=== PATIENT | female | born 1980 ===

== ENCOUNTER 2016-05-06 17:47 | Inpatient (IN) | payer BC ==
[~2016-05-06] VITALS: Ht 177.8 cm; Wt 73.0 kg
[2016-05-06] MEDS ORDERED: LACTATED RINGER'S 1000ML 1,000 ML IV SCH ×2 (18:04→19:00)
[2016-05-06] MEDS ORDERED: CITRIC ACID/SODIUM CITRATE 15 ML UDC PO ONE (18:15)
--- NOTE | 2016-05-06 18:17 | History and Physical ---
History & Physical Date & Time of Service: May 06, 2016 at 18:12 Chief Complaint: LABOR Primary Care Physician: No Doctor, Assigned History of Present Illness Source: patient Patient is a 35 yo at 38.3 wks who is presented with her rn access and Service Manager to us after trila of home delivery. She has been pushing for 7 hours and no progress and persistent face presentation She SROM'ed on 05/04 at 11 pm Her cx was closed yesterday am by her rn access. Started to have ctxs last night on 05/05 she was then found to be fully dilated at 6 am this morning She has been pushing on and off for 7 hours since 10 am and had no progress Her rn access thought, baby was presenting with nose/ face. She tried to manually flex the baby's head but could not. She called me and instructed to bring to hospital JUSTIN. No fever or chill Last temp was 99.5 this afternoon She is very painful now. She states she is tired of pushing. Bed side US done by myself: neck hyperextended VE: face presentation, I feel the nose and eye lids Swollen by gentle palpation FHR 160's minimal variability Variable decels Recommended emergent Csection, she understands the risk of surgery itself and possible risks/ infection to baby and herself due to prolonged SROM/ LABOR She signed the consent Reviewed her PMH, PSH, MEDS Social History Smoking Status: Never Smoker Smokeless Tobacco Use: No Alcohol Use: none Drug Use: none Marital Status: Housing status: lives with family Allergies Coded Allergies: NO KNOWN DRUG ALLERGIES (Verified Allergy, Unknown, no allergies, 05/06/16) Review of Systems Constitutional: + chills, + fever Physical Exam General Appearance: WD/WN, + severe distress Head: normocephalic Eyes: normal inspection Neck: supple Respiratory/Chest: chest non-tender, lungs clear Cardiovascular: regular rate, rhythm Genitourinary - Female: + pertinent finding (swollen labia) Back: normal inspection Extremities/Musculoskelatal: normal inspection, no pedal edema, non-tender Skin: normal color, warm/dry Diagnostics Laboratory Results Results Past 24 Hours Test 05/06/16 18:04 Range/Units Diagnostic Radiology Bed side US: neck hyperextended, FHR 160's Impression Assessment and Plan 35 yo at 38.3 wks proloned SROM for 44 hours, prolonged labor, arres of descent for y hours and persistent face presentation FHR categ II Recommended emergent Csection She signed the informed consent VTE Prophylaxis VTE Risk Assessment Done? Y/N: Yes Risk Level: Moderate
[2016-05-06] MEDS ORDERED: MoRPHine SULFATE PF 1 MG/ML 10 ML AMP/VIAL ONE (18:20)
[2016-05-06] MEDS ORDERED: CEFAZOLIN IV 2,000 MG in DEXTROSE 5% 50ML 50 ML IV SCH (18:30)
[2016-05-06 18:34] LABS: HEMATOCRIT 36.9 % (37-47); MEAN CELL VOLUME 90.9 fL (80-100); MEAN CORPUSCULAR HGB CONC 35.2 g/dl (32-36); MEAN PLATELET VOLUME 9.9 fL (7.4-10.4); PLATELET COUNT 259 K/uL (130-400); RED BLOOD COUNT 4.06 M/uL (4.2-5.4); WHITE BLOOD COUNT 23.23 K/uL (4.8-10.8)
[2016-05-06] MEDS ORDERED: FENTANYL CITRATE INJ 50 MCG/1 ML 2 ML VIAL ONE ×2 (18:46→19:05)
[2016-05-06] MEDS ORDERED: PROPOFOL IV EMULSION 10 MG/ML 20 ML VIAL IV ONE (18:56)
[2016-05-06] MEDS ORDERED: ROCURONIUM BROMIDE 10 MG/ML 5 ML VIAL ONE (18:56)
[2016-05-06 18:57] LABS: BASO ABS # 0.01 K/uL (0-0.2); COMPLETE YES; IG% 0.4 %; LYMPH % 5.9 %; LYMPH ABS # 1.38 K/uL (1.2-3.4); MONO % 2.5 %; NEUT % 91.2 %
[2016-05-06] MEDS ORDERED: ONDANSETRON INJ 2 MG/ML 2 ML VIAL ONE (19:05)
[2016-05-06] MEDS ORDERED: GLYCOPYRROLATE INJ 0.2 MG/ML VIAL ONE (19:06)
[2016-05-06] MEDS ORDERED: NEOSTIGMINE METHYLSULFATE 5 MG/5 ML SYR ONE (19:06)
[2016-05-06] MEDS ORDERED: NURSING VERBAL MED ORDER ONE (19:15)
[2016-05-06] MEDS ORDERED: SUPERCREAM 0.870 % 15GM JAR EXT PRN (19:30)
[2016-05-06] MEDS ORDERED: ONDANSETRON INJ 2 MG/ML 2 ML VIAL IV PRN (19:30)
[2016-05-06] MEDS ORDERED: OXYTOCIN INJ 10 UNITS/ML VIAL IM ONE (19:30)
[2016-05-06] MEDS ORDERED: DIPHTHERIA/TETANUS/PERTUSSIS 0.5 ML SYR/VIAL IM. ONE (19:30)
[2016-05-06] MEDS ORDERED: MEPERIDINE HCL 25 MG/ML CARP ONE (19:30)
[2016-05-06] MEDS ORDERED: MAGNESIUM HYDROXIDE SUSP 30 ML UDC PO PRN (19:30)
[2016-05-06] MEDS ORDERED: ZOLPIDEM TARTRATE 5 MG TAB PO PRN (19:30)
[2016-05-06] MEDS ORDERED: DiphenhydrAMINE HCL 50 MG/ML VIAL IV PRN (19:30)
[2016-05-06] MEDS ORDERED: MEPERIDINE HCL 75 MG/ML CARP IV PRN (19:30)
[2016-05-06] MEDS ORDERED: OXYCODONE/ACETAMINOPHEN 5-325 TAB PO PRN ×2 (19:30)
[2016-05-06] MEDS ORDERED: SENNA 8.6 MG TAB PO PRN (19:30)
[2016-05-06] MEDS ORDERED: MEASLES, MUMPS & RUBELLA VIRUS VIAL SQ. ONE (19:30)
[2016-05-06] MEDS ORDERED: MEPERIDINE HCL 50 MG/ML CARP IV PRN (19:30)
[2016-05-06] MEDS ORDERED: PROMETHAZINE HCL INJ 25 MG in SODIUM CHLORIDE 0.9% 50ML 50 ML IV PRN (19:30)
[2016-05-06] MEDS ORDERED: BENZOCAINE 20% AER SPR 82.5 GM CAN EXT PRN (19:30)
[2016-05-06] MEDS ORDERED: HYDROCORTISONE ACETATE 25 MG SUPP PR PRN (19:30)
[2016-05-06] MEDS ORDERED: LANOLIN OINT EXT PRN ×2 (19:30)
--- NOTE | 2016-05-06 19:31 | [facility] Post Operative Brief Note ---
Immediate Operative Summary Operative Date May 06, 2016. Pre-Operative Diagnosis FAILURE TO DESCEND AFTER 7 HRS OF PUSHING AT HOME; FACE PRESENTATION Post-Operative Diagnosis SAME Procedure(s) Performed PRIMARY LOW TRANSVERSE SECTION Surgeon DR C[place]AND Brick Carrier Surgeon(s) DR GALINDO Estimated Blood Loss 600 CC Findings neck hyperextended, face presentation Specimens A. CORD BLOOD B. CORD GASES C. PLACENTA-EXAM D. AEROBIC AND ANAEROBIC CULTURES OF PLACENTA Drains rivera [address] Davie HUMMEL Complication(s) None
--- NOTE | 2016-05-06 19:52 | Anesthesiology Progress Note ---
Anesthesia Post Op Note Date & Time May 06, 2016 at 19:52 Notes Mental Status: alert / awake / arousable, participated in evaluation Pt Amnestic to Procedure: Yes Nausea / Vomiting: adequately controlled Pain: adequately controlled Airway Patency, RR, SpO2: stable & adequate BP & HR: stable & adequate Hydration State: stable & adequate Anesthetic Complications: no major complications apparent
[2016-05-06] MEDS: DOCUSATE SODIUM 100 MG CAP PO SCH (20:00)
[2016-05-06] MEDS: OXYTOCIN INJ 20 UNITS in LACTATED RINGER'S 1000ML 1,000 ML IV SCH (20:24)
[2016-05-06] MEDS: CLINDAMYCIN IV 900 MG in DEXTROSE 5% ADD-VANTAGE 100ML 100 ML IV SCH (20:24)
--- NOTE | 2016-05-06 20:37 | OPERATIVE REPORT ---
DATE OF OPERATION: 05/06/2016 PREOPERATIVE DIAGNOSIS: The patient is a 35-year-old at 38 weeks and 3 days of gestation, failed trial of home delivery, arrest of descent, face presentation, category 3 heart rate strip. POSTOPERATIVE DIAGNOSIS: Same. PROCEDURE: Emergency primary low transverse with Pfannenstiel skin incision. SURGEON: Dr. Traylor. RN TRIAGE: Dr. Townsend. ESTIMATED BLOOD LOSS: 600 mL. FLUIDS: 1700 mL of lactated Ringer's's's. DRAINS: Yin catheter drained 300 mL of urine. ANESTHESIA: General endotracheal Dr. Broderick. COMPLICATIONS: None. FINDINGS: Baby was a viable male , delivered at 1835 p.m. Apgars 7/9. Weight is 7 pounds 13 ounces, which is 3540 grams. Baby was in face presentation. Neck hyperextended. MATERNAL FINDINGS: Normal fallopian tubes and ovaries. Uterus has multiple small subserosal fibroids about 6 were counted, size ranged from 5 mm to 2 cm, otherwise normal uterus. DESCRIPTION OF PROCEDURE: The patient was taken to the operating room. She was placed in dorsal supine position with a leftward tilt. She was prepared and draped in the usual sterile fashion. She was given general anesthesia and intubated by Dr. Broderick and then a Pfannenstiel skin incision was made, carried through to the underlying layer of fascia with the scalpel. The fascia was incised in the midline and incision extended laterally with the help of Fong scissors. The upper aspect of the fascial incision was grasped with 2 Coleman clamps, elevated, underlying rectus muscle dissected sharply with Fong scissors. Lower aspect of the fascial incision was grasped with 2 Coleman clamps, elevated, underlying rectus muscles were dissected off sharply with Fong scissors and the rectus muscles were in the midline. Peritoneum was entered bluntly. Peritoneal incision was extended superiorly and inferiorly with good visualization of the bladder. Bladder blade was inserted. Vesicouterine peritoneum was identified, grasped with pickups, elevated, entered sharply with Metzenbaum scissors. The bladder flap was created digitally and bladder blade was reinserted. Lower uterine segment was incised in a transverse fashion. Incision was extended laterally with the help of fingers and upon entry into the uterus baby's neck was seen hyperextended and a nuchal cord around the neck, and then the head was in a face presentation in the pelvis. The head was brought to the incision without difficulty, delivered and then the nuchal cord was reduced. Shoulders were delivered with minimal traction. Mouth and nose were suctioned. Cord was clamped x2 and cut. Baby was handed off to the awaiting fitter up. Cord gases were obtained and then placenta was delivered manually as intact and complete. Uterus was exteriorized, cleared of all clots and debris. Uterus was boggy initially. IV Pitocin infusion was started and 10 units of Pitocin was injected into the uterine muscle and bimanual massage was done and uterus started to contract and became firm and the incision was repaired with 0 Vicryl in a running locked fashion. A second imbricating layer was used again 0 Vicryl in a running fashion. Excellent hemostasis was achieved. The vesicouterine peritoneum was reapproximated with 2-0 chromic in a running fashion and the posterior cul-de-sac was irrigated with warm normal saline and suctioned. The uterus was returned to the abdomen and pelvis was irrigated with warm normal saline. Incision was checked to be hemostatic again. The parietal peritoneum was reapproximated with 3-0 Vicryl in a running fashion. Rectus muscles were reapproximated with the same suture in a running fashion and the rectus fascia was reapproximated with 0 Vicryl in a running fashion and the skin was closed with 4-0 Monocryl in a subcuticular fashion. The patient tolerated the procedure well. Sponge, lap, needle and instrument counts were correct x3. The patient was given 2 grams of cefazolin during surgery. She was taken to the recovery room in stable condition. I attest to the content of the Intraoperative Record and any orders documented therein. Any exceptions are noted below. MTDD
[2016-05-06] MEDS: SIMETHICONE 80 MG CHEW PO SCH (21:00)
[2016-05-06] MEDS: KETOROLAC TROMETHAMINE 30 MG/ML VIAL IV. PRN (21:10)
[2016-05-06] MEDS ORDERED: DOCO1CAP (21:26)
[2016-05-06] MEDS ORDERED: PRENTAB26 PO (21:26)
[2016-05-06 21:28] VITALS: Ht 177.8 cm; Wt 73.0 kg
[2016-05-07] VITALS (8 sets, daily range): BP systolic 100–127; BP diastolic 55–71; PULSE 84–98; TEMP 36.5–36.9; O2SAT 96–100
[2016-05-07] MEDS: CEFAZOLIN IV 2,000 MG in DEXTROSE 5% 50ML 50 ML IV SCH ×3 (01:52→17:42)
[2016-05-07] MEDS: CLINDAMYCIN IV 900 MG in DEXTROSE 5% ADD-VANTAGE 100ML 100 ML IV SCH ×3 (04:00→20:00)
[2016-05-07] MEDS: KETOROLAC TROMETHAMINE 30 MG/ML VIAL IV. PRN ×3 (04:03→15:40)
[2016-05-07] MEDS ORDERED: COUGH DROP (SUGAR FREE) LOZ 24 LOZ/1 BOX ONE (04:13)
[2016-05-07] MEDS: OXYTOCIN INJ 20 UNITS in LACTATED RINGER'S 1000ML 1,000 ML IV SCH (06:11)
[2016-05-07] MEDS: FERROUS SULFATE 325 MG TAB PO SCH (08:25)
[2016-05-07] MEDS: DOCUSATE SODIUM 100 MG CAP PO SCH ×2 (08:26→19:38)
[2016-05-07] MEDS: PRENATAL VITAMIN TAB PO SCH (08:26)
[2016-05-07] MEDS: SIMETHICONE 80 MG CHEW PO SCH ×4 (08:26→19:38)
[2016-05-07 09:04] LABS: HEMATOCRIT 26.9 % (37-47); MEAN CELL VOLUME 90.3 fL (80-100); MEAN CORPUSCULAR HEMOGLOBIN 32.2 pg (25-34); MEAN CORPUSCULAR HGB CONC 35.7 g/dl (32-36); MEAN PLATELET VOLUME 9.5 fL (7.4-10.4); PLATELET COUNT 193 K/uL (130-400); RED BLOOD COUNT 2.98 M/uL (4.2-5.4); WHITE BLOOD COUNT 21.43 K/uL (4.8-10.8)
[2016-05-07 09:28] LABS: BASO ABS # 0.01 K/uL (0-0.2); COMPLETE YES; EOS % 0.1 %; IG% 0.4 %; LYMPH % 8.3 %; LYMPH ABS # 1.78 K/uL (1.2-3.4); MONO % 6.9 %; NEUT % 84.3 %
--- NOTE | 2016-05-07 09:52 | OB/GYN Progress Note ---
STRADDLE BUG DRIVER Progress Note Date of Service May 07, 2016. Subjective conversation w/ patient, physical exam Ambulation: limited ambulation Voiding: rivera catheter in place Passing Gas: Yes Diet Tolerance: NPO Lochia: Moderate Review of Systems Constitutional: No chills, No fatigue, No fever, No problem reported, No sweats , No weakness, No weight loss Respiratory: No cough, No dyspnea at rest, No dyspnea on exertion, No hemoptysis, No problem reported, No shortness of breath, No sputum, No wheezing Cardiac: No PND, No chest pain, No claudication, No edema, No orthopnea, No palpitations, No problem reported Breast: No breast lump, No breast pain, No change in shape, No nipple discharge , No problem reported, No see HPI Abdomen: No GI bleeding, No constipation, No diarrhea, No nausea, No pain, No problem reported, No vomiting Female : No abnormal vaginal bleeding, No dysuria, No hematuria, No incontinence, No problem reported, No see HPI, No urinary frequency, No vaginal discharge Post op day #1 s/p emergency c/sec x 12 hrs ago On antibx for prolonged rapture of membranes continue day #1 care d/c rivera at 1800hrs Objective Vital Signs Date Time Temp Pulse Resp B/P Pulse Ox O2 Delivery O2 Flow Rate FiO2 05/07/16 07:30 99 Room Air 05/07/16 07:30 36.6 90 18 102/63 99 Room Air 05/07/16 04:10 36.8 84 16 100/63 98 Room Air 05/07/16 01:15 88 16 127/55 98 Room Air 05/07/16 00:00 36.5 98 18 101/59 97 Room Air 05/07/16 00:00 97 Room Air Physical Exam Respiratory/Chest: chest non-tender, lungs clear, normal breath sounds, no respiratory distress, no accessory muscle use Cardiovascular: regular rate, rhythm, no edema, no gallop, no JVD, no murmur Abdomen: normal bowel sounds, non tender, soft, no organomegaly, no pulsatile mass Fundus: Firm Incision Description: Clean, Dry & Intact Extremities: normal range of motion, non-tender, normal inspection, no pedal edema, no calf tenderness Laboratory Results Last 24 Hours Test 05/06/16 18:20 05/07/16 07:09 White Blood Count 23.23 K/uL 21.43 K/uL Red Blood Count 4.06 M/uL 2.98 M/uL Hemoglobin 13.0 g/dL 9.6 g/dL Hematocrit 36.9 % 26.9 % Mean Corpuscular Volume 90.9 fL 90.3 fL Mean Corpuscular Hemoglobin 32.0 pg 32.2 pg Mean Corpuscular Hemoglobin Concent 35.2 g/dl 35.7 g/dl Platelet Count 259 K/uL 193 K/uL Mean Platelet Volume 9.9 fL 9.5 fL Neutrophils (%) (Auto) 91.2 % 84.3 % Lymphocytes (%) (Auto) 5.9 % 8.3 % Monocytes (%) (Auto) 2.5 % 6.9 % Eosinophils (%) (Auto) 0.0 % 0.1 % Basophils (%) (Auto) 0.0 % 0.0 % Neutrophils # (Auto) 21.18 K/uL 18.06 K/uL Lymphocytes # (Auto) 1.38 K/uL 1.78 K/uL Monocytes # (Auto) 0.57 K/uL 1.47 K/uL Eosinophils # (Auto) 0.00 K/uL 0.02 K/uL Basophils # (Auto) 0.01 K/uL 0.01 K/uL RDW Standard Deviation 43.6 fL 43.3 fL RDW Coefficient of Variation 13.2 % 13.4 % Immature Granulocyte % (Auto) 0.4 % 0.4 % Immature Granulocyte # (Auto) 0.09 K/uL 0.09 K/uL Assessment and Plan Post-Op Day Number: 1 Continue Routine Care: Post op day #1 s/p emergency c/sec x 12 hrs ago On antibx for prolonged rapture of membranes continue day #1 care d/c nicole at 1800hrs
[2016-05-07] MEDS: IBUPROFEN 600 MG TAB PO PRN ×2 (19:38→23:34)
[2016-05-07] MEDS ORDERED: BISACODYL 5 MG TABEC PO ONE (22:00)
[2016-05-08] MEDS: CEFAZOLIN IV 2,000 MG in DEXTROSE 5% 50ML 50 ML IV SCH ×3 (02:49→18:00)
[2016-05-08 06:03] VITALS: BP 116/69; PULSE 95; TEMP 36.8; O2SAT 97
[2016-05-08] MEDS: IBUPROFEN 600 MG TAB PO PRN ×4 (07:12→22:24)
--- NOTE | 2016-05-08 08:58 | OB/GYN Progress Note ---
FOOD ORDER EXPEDITER Progress Note Date of Service May 08, 2016. Subjective physical exam Ambulation: ambulating normally Voiding: no voiding problems Passing Gas: Yes Diet Tolerance: Regular Diet Lochia: Small Feeding Type: Breast Feeding Pain: 3/10 Notes: Doing well. Has stopped antibiotics and remains afebrile. Pain well controlled. Lochia minimal. Incision is clean and dry. Ambulating without difficulty. Tolerating regular diet, +flatus, -BM. Objective Vital Signs Date Time Temp Pulse Resp B/P Pulse Ox O2 Delivery O2 Flow Rate FiO2 05/08/16 06:03 36.8 95 18 116/69 97 Room Air 05/07/16 23:35 36.9 94 16 105/71 96 Room Air 05/07/16 23:35 96 Room Air 05/07/16 19:30 36.8 94 20 104/65 Room Air 05/07/16 16:00 36.7 88 16 113/69 100 Room Air 05/07/16 16:00 100 Room Air 05/07/16 11:50 36.7 92 20 101/59 99 Room Air Physical Exam General Appearance: WELL-APPEARING, WD/WN Respiratory/Chest: chest non-tender, lungs clear Cardiovascular: regular rate, rhythm Abdomen: normal bowel sounds, soft Fundus: Firm Incision Description: Clean, Dry & Intact Extremities: normal range of motion, non-tender, no calf tenderness Assessment and Plan Post-Op Day Number: 2 Continue Routine Care: -Continue routine postop care -Antibiotics stopped, has had 24 hour of antibiotics. -Anticipate d/c home tomorrow.
[2016-05-08 09:00] VITALS: BP 116/75; PULSE 144; TEMP 36.5
[2016-05-08] MEDS: DOCUSATE SODIUM 100 MG CAP PO SCH ×2 (09:12→19:55)
[2016-05-08] MEDS: SIMETHICONE 80 MG CHEW PO SCH ×4 (09:12→19:55)
[2016-05-08] MEDS: FERROUS SULFATE 325 MG TAB PO SCH (09:13)
[2016-05-08] MEDS: PRENATAL VITAMIN TAB PO SCH (09:13)
[2016-05-08] MEDS: CLINDAMYCIN IV 900 MG in DEXTROSE 5% ADD-VANTAGE 100ML 100 ML IV SCH ×2 (12:00→19:59)
[2016-05-08 16:20] VITALS: BP 116/70; PULSE 98; TEMP 36.6; O2SAT 96
[2016-05-08] MEDS ORDERED: BISACODYL 10 MG SUPP PR PRN (19:30)
[2016-05-08 23:25] VITALS: BP 104/71; PULSE 97; TEMP 36.6; O2SAT 98
[2016-05-09] MEDS: CEFAZOLIN IV 2,000 MG in DEXTROSE 5% 50ML 50 ML IV SCH (01:59)
[2016-05-09] MEDS: IBUPROFEN 600 MG TAB PO PRN ×3 (04:46→14:11)
[2016-05-09 09:30] VITALS: BP 107/67; PULSE 87; TEMP 36.7; O2SAT 97
[2016-05-09] MEDS: PRENATAL VITAMIN TAB PO SCH (09:43)
[2016-05-09] MEDS: FERROUS SULFATE 325 MG TAB PO SCH (09:43)
[2016-05-09] MEDS: SIMETHICONE 80 MG CHEW PO SCH ×2 (09:43→14:11)
[2016-05-09] MEDS: DOCUSATE SODIUM 100 MG CAP PO SCH (09:43)
--- NOTE | 2016-05-09 09:53 | Surgery Progress Note ---
Surgery Progress Note Date of Service May 09, 2016. Subjective Post OP Day: 3 + ambulating, + diet (tolerating PO food and meds), + feeling well, + flatus, + pain controlled, + using FOREIGN EXCHANGE CLERK, No SOB, No bowel movement, No chest pain, No complaints, No nausea, No vomiting Objective Vital Signs: Date Time Temp Pulse Resp B/P Pulse Ox O2 Delivery O2 Flow Rate FiO2 05/08/16 23:25 36.6 97 18 104/71 98 Room Air 05/08/16 23:25 98 Room Air 05/08/16 16:20 36.6 98 16 116/70 96 Room Air 05/08/16 16:20 96 Room Air General Appearance: WD/WN, no apparent distress Head: normocephalic, atraumatic Neck: supple, no adenopathy, thyroid normal, no JVD, no carotid bruits, trachea midline Respiratory/Chest: chest non-tender, lungs clear, normal breath sounds, no respiratory distress, no accessory muscle use Cardiovascular: regular rate, rhythm, no edema, no gallop, no JVD, no murmur Abdomen: normal bowel sounds, non tender, non distended, soft, no organomegaly , no pulsatile mass Incision(s): clean, dry, intact, no erythema, no drainage Extremities: normal range of motion, non-tender, normal inspection, no pedal edema, no calf tenderness, normal capillary refill, pelvis stable Laboratory Results: Results Past 24 Hours Test 05/09/16 04:44 Range/Units Assessment & Plan C/Sec day #3 pt doig well disch home with instructions
[2016-05-09] MEDS ORDERED: OXYC-57 PO ×2 (09:57→10:11)
[2016-05-09] MEDS ORDERED: CLC100 PO (09:57)
[2016-05-09] MEDS ORDERED: MTR600X PO (09:57)
[2016-05-09] MEDS ORDERED: FRRS300 PO (09:57)
[2016-05-09] MEDS ORDERED: MYL80 PO (09:57)
--- NOTE | 2016-05-09 09:58 | Discharge Instructions ---
Discharge Instructions Date of Service May 09, 2016. Admission Reason for Admission: LABOR Discharge Discharge Diagnosis / Problem: postpartun c/sec Discharge Goals Goal(s): Routine recovery after Activity Recommendations Activity Limitations: as noted below ACTIVITY RECOMMENDATIONS: * Gradual return to full activity over the next 2-3 weeks. * No lifting - nothing heavier than baby over the next 2-3 weeks. * Do not engage in vigorous exercise, sexual activity or sports until cleared by your physician. * Do not drive or operate any motorized equipment until cleared by your physician. * You may shower/bathe daily. BREAST CARE: If you are not breast feeding: * Wear a supportive bra 24 hours a day for one to two weeks. * Avoid stimulating your breasts and nipples as much as possible during the first few weeks after delivery. * When taking a shower, have the warm water hit your back, not breasts. * When your breasts feel full, apply ice packs. Usually three to four times a day helps ease the discomfort. * Take a mild pain medication (Tylenol/Motrin) when you are uncomfortable. If breast feeding: * Use breast milk to lubricate nipples. Lansinoh cream may be used for sore nipples. You do not need to remove cream prior to breast feeding. If using a different brand of cream, check the label for directions regarding removal of cream prior to nursing. * Wear a supportive bra. * If having problems with breasts or breast feeding, call a bilingual sales consultant or your health care provider. OVER THE COUNTER MEDICATION: * For discomfort or pain, you may use Acetaminophen (Tylenol), Ibuprofen (Advil ), or Naproxen (Aleve) following the package directions. * For constipation you may use Colace following the package directions. SPECIAL CARE INSTRUCTIONS: When you are discharged from the hospital, it is important for you to follow the instructions listed below: * During the first week at home, you should be able to care for yourself and your baby. In addition, the usual light household activities are encouraged. * Limit your activities to the way you feel. Do not try to clean the house or move furniture. Be sensible. * If you actively engage in sports and have done so up until the time of your delivery, you may resume these activities as soon as you feel able. This may take up to one month or even longer. Use good judgment. * Continue to take your vitamins for at least six weeks after the of your baby. * Your diet need not be limited unless you were on a special diet before your delivery. Breast-feeding mothers need around 2500 calories per day and at least 64-80 ounces of fluid per day (8 to 10 glasses). * You should eat foods from the four major food groups. Crash diets or fad diets are to be avoided. Eating lean meats, fresh fruits and vegetables, low-fat dairy products, high fiber foods and a regular exercise program, will help you get back to your pre- weight without putting your health at risk. * Constipation is sometimes a problem after delivery. Take a mild laxative as needed. If breast feeding, Milk of Magnesia is acceptable to use. You may use a suppository or Fleets enema if no episiotomy. * A daily shower or tub bath is suggested. Be sure to thoroughly and gently dry the perineum. * A bloody vaginal discharge will usually continue until around four weeks post . A small amount of bleeding may continue for as long as six weeks. Vaginal discharge changes from the bright red bleeding after delivery to pink then brownish and finally yellowish-pink before becoming white and disappearing. * Bleeding may increase with activity. Your first period may come in 4-8 weeks. If you are breast feeding, your period may be delayed even longer. * [place] (sex) can begin whenever both you and your partner feel comfortable and do not have any form of genital infection. It is recommended that you wait at least six weeks for internal and external healing to occur. If you have questions, please talk to your health care practitioner. A condom should be used to prevent infection and . * Foreplay, gentle intercourse and lubrication is very important the first several times to prevent pain. A water-based lubricant such as K-Y jelly or Astroglide may be used. * Tampons and/or Douching should be avoided until after six weeks check-up. * If you have RH negative blood and your baby is RH positive, you will receive RHOGAM by injection prior to discharge. The nurse will give you a card to keep with you that has the date and place that you received RHOGAM after delivery. * During your care, you had a Rubella screen done to check for the presence of rubella antibodies in your blood. If your test was negative, you will receive a Rubella vaccine prior to discharge. This vaccine may cause a fever, soreness at the injection site and flu-like symptoms. If these symptoms persist, notify your health care practitioner. is not advised for three months after a Rubella vaccine. * Verbalizes understanding of car seat law as reviewed with patient nursing. * Car Seat hand-out given and reviewed with patient by nursing. * Shaken baby information reviewed with patient by nursing. Call you doctor if: * Heavy bleeding (saturating several pads an hour) or passing clots the size of your fist. * A fever >101 degrees F (38.3 degrees C) on two occasions four hours apart and /or chills. * Unusual pain in the pelvic or vaginal areas. Pain should improve each day . * Call the doctor for any increased redness, drainage or swelling around the incision and any pain unrelieved by prescribed pain medication. * Any signs or symptoms of phlebitis (possible blood clots forming in the veins ): leg pain, warm, red or swollen area on leg. * "Baby Blues" lasting longer than two weeks. If you have any questions or concerns, call your health care practitioner at . FOLLOW-UP VISIT: * Incision check (staple removal) in 1 week. Please call doctor's office at to set up appointment. * Please call the office at to schedule a 6 week examination. It is important you keep this appointment. * It is important for you to make arrangements for either yearly or twice yearly check-ups thereafter. . Current Hospital Diet Patient's current hospital diet: Regular OB Diet Discharge Diet Recommended Diet: Regular Diet Procedures Procedures Performed: PRIMARY LOW TRANSVERSE SECTION Pending Studies Studies pending at discharge: no Medical Emergencies . Who to Call and When: Medical Emergencies: If at any time you feel your situation is an emergency, please call [phone] immediately. . Non-Emergent Contact Non-Emergency issues call your: Specialist . . "Provider Documentation" section prepared by Roland Hurtado. VTE Core Measure Inpt VTE Proph given/why not?: Treatment not indicated
[2016-05-09 10:11] LABS: HEMATOCRIT 26.2 % (37-47); MEAN CELL VOLUME 93.6 fL (80-100); MEAN CORPUSCULAR HEMOGLOBIN 32.5 pg (25-34); MEAN CORPUSCULAR HGB CONC 34.7 g/dl (32-36); MEAN PLATELET VOLUME 9.2 fL (7.4-10.4); PLATELET COUNT 228 K/uL (130-400)
[2016-05-09 14:30] VITALS: BP_DIAS 67; PULSE 87; TEMP 36.7
--- NOTE | 2016-05-18 07:38 | DISCHARGE SUMMARY ---
DETAILS OF ADMISSION: The patient is a 35-year-old G1, P0 at 38 weeks and 3 days of gestation, who presented with her hoof and shoe inspector and her patient care coordinator to labor and delivery after trial of home delivery. She reported to have spontaneous rupture of membrane on 05/04/2016. She labored at home with her hoof and shoe inspector and she was brought to labor and delivery after a trial of push for 7 hours with face presentation. When she presented to labor and delivery, baby was in persistent face presentation and the patient's cervix was fully dilated. heart rate strip was category 3. She was taken to OR for emergency . The patient delivered a viable male , Apgars were 7 and 9. See dictated operative note for details. In the postop period, the patient was doing well. Yin was draining urine. Vital signs stable, afebrile. Pain was under control. Urine output was adequate. Physical exam was unremarkable. Her incision was clean, dry and intact. Her H\T\H was 9.6/26.9. She was placed on IV antibiotics for suspected chorioamnionitis and prolonged rupture of membranes. On postop day #2, the patient was doing well, ambulating, tolerating regular diet, passing gas, voiding without problems. Pain was under control with medication. Her antibiotic was discontinued on postop day #2. The patient has been afebrile. Incision was clean, dry and intact. Physical exam was unremarkable. Bleeding was minimal. On postop day #3, the patient was doing well, ambulating, tolerating regular diet, passing gas. Vital signs stable, afebrile. Physical exam was unremarkable. Incision was clean, dry and intact. Her H\T\H was 9.1/26.2. Her white count dropped from 23,000 to 14,000 and she desired to be discharged home on postop day #3, 05/09/2016. She was discharged by Dr. Hurtado. Discharge instructions were given when to call and prescriptions were written for pain. She is to be seen in the office in a week for incision check. CELIA
== END 2016-05-09 16:05 | disposition home or self-care (01) | DRG 766 ==
LOC: C.LD 17:47 → C.OBG 22:48
PROVIDERS: ADMIT Obstetrics & Gynecology; ATTEND Obstetrics & Gynecology
PROC: 10D00Z1 Extraction of Products of Conception, Low, Open Approach (ICD-10-PCS; principal; 2016-05-06 18:34)
DX: O34.13 Maternal care for benign tumor of corpus uteri, third trimester (principal); Z37.0 Single live birth; Z3A.38 38 weeks gestation of pregnancy; O69.1XX0 Labor and delivery complicated by cord around neck, with compression, not applicable or unspecified; D25.2 Subserosal leiomyoma of uterus